=== PATIENT | female | born 1975 | race Two or more races ===

== ENCOUNTER → 2016-10-07 | Outpatient (CLI) | payer OTHER ==
--- NOTE | ~2016-10-07 | MY11 ---
[facility] A Service of [facility] RADIOLOGY TEXT RESULTS PATIENT: KEE JOHNSON [facility] 71 UNIT #: [id number] AGE: [address]: MIHAELA WALKER APRN SEX: F ORDER DR: [id number] [facility] [address] [place], [place] [address] [id number] O MR#: [id number] Acc #: [id number] NAME: KEE JOHNSON : 1975 SEX: F STUDY DATE/TIME: 10/07/2016 10:45 [facility] ROOM: STUDY DESCRIPTION: MY Mammogram Screening [facility] Attending Physician: Sean Walker M.D. Referring Physician: Gerry Sage M.D. Ordering Physician: Sean Walker M.D. Primary Care Physician: Gerry Sage M.D. MEDICAL IMAGING REPORT This report is preliminary unless electronic signature is present EXAM Digital screening mammogram 10/07/2016, [facility]. HISTORY 41-year-old woman no risk elevation. Annual screen. COMPARISON None. [facility] FINDINGS Digital imaging of each breast was completed utilizing a two-view examination of each breast in craniocaudal and mediolateral-oblique projections. Review and interpretation of digital mammograms include a second review in conjunction with FDA-approved CAD device. There is a normal parenchymal presentation bilaterally consistent with the patient's age. There are no breast masses imaged and no parenchymal asymmetry is visualized. There are no suspicious microcalcifications and I see no focal architectural disturbance. IMPRESSION Negative screening digital mammogram. One-year followup recommended. Patients over the age of 40 are entered into a reminder system with target due date for the next mammogram. A result letter will also be sent to the patient. BIRADS: 1 Negative ADDENDUM Breast parenchyma is fatty replaced. [facility] A Service of [facility] RADIOLOGY TEXT RESULTS PATIENT: KEE JOHNSON [facility] 71 UNIT #: [id number] AGE: [address]: MIHAELA WALKER APRN SEX: F ORDER DR: Dictated by... Montrell Chang M.D. THIS IS AN ELECTRONICALLY VERIFIED REPORT Montrell Chang M.D. at 10/14/2016 8:06 AM BENJIE/lauryn TD: 10/11/2016 15:03 JOB #: [id number] MEDICAL IMAGING REPORT Page 1 of 1 COPY
== END | disposition home or self-care (01) ==
LOC: CWCC 10:10
DX: Z12.31 Encounter for screening mammogram for malignant neoplasm of breast (principal); R92.8 Other abnormal and inconclusive findings on diagnostic imaging of breast
CPT/HCPCS: G0202